=== PATIENT | female | born 1980 | race Caucasian/White ===

== ENCOUNTER 2022-05-28 07:50 | Emergency (ER) | payer OTHER, SELFPAY ==
[2022-05-28 08:04] VITALS: BP 115/71; PULSE 84; RESP 17; TEMP 35.7; O2SAT 100; BMI 20.9
--- NOTE | 2022-05-28 08:06 | ED.PREGNANCY ---
HPI - General Chief complaint: Vaginal Bleeding Stated complaint: miscarriage xstory 7days pain moved into back Time Seen by Provider: 05/28/22 08:06 Source: patient Mode of arrival: Ambulatory Limitations: no limitations History of Present Illness HPI Narrative: This is a 41-year-old female last menstrual period was 04/05/2022 who states she had 5 positive home tests, she started having bleeding with about 2 days of clots which has tapered off to just spotting and occasional pinkish blood over the past week. Patient states she had improved in terms of her cramping in his comfort which lasted about 2 days. She states last night she started feeling nauseated she felt chilled, she denies cough cold or congestion, no chest pain or shortness of breath, she is had some nausea but no vomiting. She had some episodes of diarrhea but not black or bloody. No dysuria, urgency or frequency. No increase in vaginal bleeding she has not appreciate any foul odor or changes in discharge but was concerned as she is continued to have pelvic discomfort and radiating to bilateral flank. Patient denies any recent surgeries, she did have a parathyroidectomy for parathyroid adenoma. No known drug allergies. She takes medication for hypothyroidism. Patient does live on [address]. Related Data Home Medications Medication Instructions Recorded Confirmed levothyroxine 112 mcg tablet 0.112 mg PO QAM ##0 11/02/16 Previous Rx's Medication Instructions Recorded fluconazole 150 mg tablet 150 mg PO QDAY #2 tabs 11/02/16 (Diflucan) Allergies Allergy/AdvReac Type Severity Reaction Status Date / Time No Known Allergies Allergy Uncoded 11/22/17 12:42 Review of Systems Review of Systems ROS Unobtainable: All systems reviewed & are unremarkable except as noted in HPI and below Exam Narrative Exam Narrative: GENERAL: Alert and oriented x three, mild distress. HEENT: Head normocephalic, atraumatic, EOMI, pupils reactive, face symmetric, moist mucous membranes NECK: Supple, full range of motion CARDIOVASCULAR: Regular rate and rhythm without murmurs, rubs or gallops. RESPIRATORY: Breath sounds equal bilaterally, no wheezes rales or rhonchi. ABDOMEN: Soft, mild suprapubic tenderness. Normoactive bowel sounds all 4 quadrants. No guarding or rebound, rigidity, no mass. Nondistended. : No CVA tenderness EXTREMITIES: Normal range of motion, no clubbing or edema. Neurovascularly intact NEUROLOGICAL: Cranial nerves II through XII grossly intact. Moving all extremities SKIN: Warm, dry, no petechiae, no rashes or lesions. Initial Vital Signs Initial Vital Signs: Vital Signs Temperature 96.3 F L 05/28/22 08:04 Pulse Rate 84 05/28/22 08:04 Respiratory Rate 17 05/28/22 08:04 Blood Pressure 115/71 05/28/22 08:04 Pulse Oximetry 100 05/28/22 08:04 Oxygen Delivery Method 05/28/22 08:04 Course Orders Ordered: Discontinued Medications Sodium Chloride (Normal Saline 0.9%) 1,000 mls @ 1,000 mls/hr IV BOLUS ONE Stop: 05/28/22 09:29 Last Infusion: 05/28/22 10:34 Dose: 0 mls/hr Documented By: Admin: 05/28/22 09:03 Dose: 1,000 mls/hr Documented By: DIANA Ketorolac Tromethamine (Ketorolac 30 Mg/Ml Vial) 15 mg IV NOW ONE Stop: 05/28/22 08:31 Last Admin: 05/28/22 09:03 Dose: 15 mg Documented By: DIANA Vital Signs Vital signs: Vital Signs - 8 hr 05/28/22 10:34 Pulse Rate 65 Blood Pressure 108/57 L Pulse Oximetry 100 Oxygen Delivery Method Room Air MDM - OB/Uterine Contractions Lab Data Result diagrams: 05/28/22 08:45 05/28/22 08:45 Labs: Lab Results 05/28/22 05/28/22 05/28/22 Range/Units 08:45 08:45 08:45 WBC 5.1 (4.5-11.0) X10^3/uL RBC 4.20 (4.0-5.2) X10^6/uL Hgb 12.5 (12.0-16.0) g/dL Hct 36.7 (36-46) % MCV 87.4 (80-100) fL MCH 29.8 (26-34) PG MCHC 34.1 (30-36) % RDW 12.2 (11.6-14.8) % Plt Count 173 (150-400) X10^3/uL Neut % (Auto) 70.2 (50-75) % Lymph % (Auto) 15.9 L (25-40) % [place] % (Auto) 11.5 (3-14) % Eos % (Auto) 1.7 L (2-4) % Baso % (Auto) 0.7 (0-2) % Neut # (Auto) 3600 (3765-9235) /uL Lymph # (Auto) 800 L (5351-8222) /uL [place] # (Auto) 600 (0-900) /uL Eos # (Auto) 100 (0-450) /uL Baso # (Auto) 0 (0-100) /uL Sodium 140 (137-145) mmol/L Potassium 3.6 (3.4-5.1) mmol/L Chloride 105 (98-107) mmol/L Carbon Dioxide 26 (22-32) mmol/L BUN 8 (7-17) mg/dL Creatinine 0.57 (0.52-1.04) mg/dL Estimated GFR > 60 (>60) mL/min BUN/Creatinine Ratio 14.0 (6-22) Glucose 100 (70-100) mg/dL Calcium 8.6 (8.4-10.2) mg/dL Total Bilirubin 0.7 (0.2-1.3) mg/dL AST 20 (14-36) IU/L ALT 15 (<35) IU/L Alkaline Phosphatase 47 (38-126) U/L Total Protein 7.3 (6.3-8.2) g/dL Albumin 4.1 (3.5-5.0) g/dL Globulin 3.2 (1.7-4.1) g/dL Albumin/Globulin Ratio 1.3 (1.0-2.8) Lipase (23-300) U/L HCG, Quant < 2.4 mIU/mL 05/28/22 Range/Units 08:45 WBC (4.5-11.0) X10^3/uL RBC (4.0-5.2) X10^6/uL Hgb (12.0-16.0) g/dL Hct (36-46) % MCV (80-100) fL MCH (26-34) PG MCHC (30-36) % RDW (11.6-14.8) % Plt Count (150-400) X10^3/uL Neut % (Auto) (50-75) % Lymph % (Auto) (25-40) % [place] % (Auto) (3-14) % Eos % (Auto) (2-4) % Baso % (Auto) (0-2) % Neut # (Auto) (0394-1091) /uL Lymph # (Auto) (3213-6186) /uL [place] # (Auto) (0-900) /uL Eos # (Auto) (0-450) /uL Baso # (Auto) (0-100) /uL Sodium (137-145) mmol/L Potassium (3.4-5.1) mmol/L Chloride (98-107) mmol/L Carbon Dioxide (22-32) mmol/L BUN (7-17) mg/dL Creatinine (0.52-1.04) mg/dL Estimated GFR (>60) mL/min BUN/Creatinine Ratio (6-22) Glucose (70-100) mg/dL Calcium (8.4-10.2) mg/dL Total Bilirubin (0.2-1.3) mg/dL AST (14-36) IU/L ALT (<35) IU/L Alkaline Phosphatase (38-126) U/L Total Protein (6.3-8.2) g/dL Albumin (3.5-5.0) g/dL Globulin (1.7-4.1) g/dL Albumin/Globulin Ratio (1.0-2.8) Lipase 136 (23-300) U/L HCG, Quant mIU/mL Point of Care Testing Test Results Negative Urine Dip Bedside Urine Glucose Negative Bedside Urine Bilirubin - Negative Bedside Urine Ketone - Negative Urine Specific Transfer 1.010 Bedside Urine Occult Blood - Negative Bedside Urine pH 6 Bedside Urine Protein - Negative Bedside Urine Urobilinogen - Negative Bedside Urine Nitrite - Negative Bedside Urine Leukocytes - Negative Esterase MDM Narrative Medical decision making narrative: This is with multiple home tests who would be 7 weeks 4 days by gestational age. She states that she had cramps in the large amount of clots about a week ago and suspect she miscarried. She had not had any visits or ultrasound. Patient states she started having more cramping and diarrhea last night and generally feeling unwell so she presents this morning. Patient states she has not had any increase in vaginal bleeding but still has very small amount of spotting. Urine is negative, point of care urine is also negative. For labs and pelvic ultrasound to evaluate for retained products of conception. Patient's abdominal exam is overall reassuring making appendicitis, or significant intra-abdominal pathology otherwise significantly less likely. Discharge Plan Departure Patient Disposition: Home Clinical Impression: Abdominal pain Instructions: DI for Miscarriage Activity Restrictions/Additional Instructions: Your labs and imaging today do not show any signs of or retained products and are overall reassuring. Talk with your OBGYN into her appointment on Monday. I hope you continue to feel better. You can continue with Tylenol and/or ibuprofen as needed for pain. Your vaginal bleeding should continue to improve. Please follow-up with your physician for recheck if you are developing new or worsening symptoms, come to the ER for having fevers, increasing abdominal, back or flank pain, persistent vomiting, black or bloody stools or other new or concerning changes. Prescriptions: No Action levothyroxine 112 MCG tablet 0.112 mg PO QAM Qty: 0 fluconazole [Diflucan] 150 MG tablet 150 mg PO QDAY Qty: 2 1RF Referrals: Amanda Caruso ARNP [Primary Care Provider] - Visit Report Forms: Patient Portal/API
--- NOTE | 2022-05-28 08:30 | DI.US.S_ITS ---
PROCEDURE: US PELVIC COMPLETE INDICATIONS: + preg LMP 04/05. now -, miscarriage, retained products? TECHNIQUE: Real-time scanning was performed of the pelvic organs, with image documentation. Additional endovaginal scanning was necessary due to incomplete visualization of the adnexal and endometrial structures by transabdominal scanning. COMPARISON: None. FINDINGS: Uterus: Uterus is retroverted and normal in size at 7.8 x 4.3 x 5.8 cm. The myometrium is homogeneous. The endometrium measures 5-6 mm combined thickness. No irregularity of the endometrial stripe can be seen. No abnormal vascularity can be seen along the endometrial stripe. Ovaries: The right ovary measures 5.4 x 2.4 x 1.6 cm, with a calculated ovarian volume of 10.8 cc. The left ovary measures 7 x 2.3 x 1.9 cm, with a calculated ovarian volume of 8.5 cc. The ovaries have a normal sonographic appearance. Less than 12 follicles can be seen in each ovary. No adnexal masses are seen. Normal appearing arterial waveforms are confirmed to each ovary. Other: No pathologic free abdominal or pelvic fluid. IMPRESSION: No findings of retained products of conception can be seen. Normal appearing endometrial stripe. No significant abnormality is seen. We strive to produce accurate, complete, and clear reports of imaging services. To assist us in improving patient care, this report was composed using standard report templates and voice recognition software. Therefore, it may contain abnormal punctuation, insertions and/or omissions. Occasional wrong-word or sound-alike substitutions may occur. Though we review the report and make efforts to correct it, we do recommend that the report be read carefully in proper context to recognize any text inaccuracies. Dictated by: Alejandro Olivera M.D. on 05/28/2022 at 9:03 Approved by: Alejandro Olivera M.D. on 05/28/2022 at 9:05
[2022-05-28] MEDS: SODIUM CHLORIDE 0.9% 1,000 ML 1000 ML IV (09:03)
[2022-05-28] MEDS: KETOROLAC 30 MG/ML VIAL 15 MG IV (09:03)
[2022-05-28 09:09] LABS: Lipase 136 U/L (23-300)
[2022-05-28 09:11] LABS: Alanine Aminotransferase 15 IU/L (<35); Albumin 4.1 g/dL (3.5-5.0); Albumin Globulin Ratio 1.3 (1.0-2.8); Alkaline Phosphatase 47 U/L (38-126); Aspartate Aminotransferase 20 IU/L (14-36); Bilirubin Total 0.7 mg/dL (0.2-1.3); Blood Urea Nitrogen 8 mg/dL (7-17); Calcium 8.6 mg/dL (8.4-10.2); Carbon Dioxide 26 mmol/L (22-32); Chloride 105 mmol/L (98-107); Estimated Glomerular Filt Rate > 60 mL/min (>60); Globulin 3.2 g/dL (1.7-4.1); Glucose 100 mg/dL (70-100); HEMOLYSIS < 15 (0-50); Potassium 3.6 mmol/L (3.4-5.1); Sodium 140 mmol/L (137-145); Total Protein 7.3 g/dL (6.3-8.2)
[2022-05-28 09:27] LABS: HCG Quantitative /Beta subunit < 2.4 mIU/mL
[2022-05-28 10:00] LABS: Add Manual Diff / Slide Review NO; Basophils Absolute Auto 0 /uL (0-100); Basophils Percent Auto 0.7 % (0-2); Eosinophils Absolute Auto 100 /uL (0-450); Eosinophils Percent Auto 1.7 % (2-4); Hematocrit 36.7 % (36-46); Hemoglobin 12.5 g/dL (12.0-16.0); Lymphocytes Absolute Auto 800 /uL (1100-4500); Lymphocytes Percent Auto 15.9 % (25-40); Mean Corpuscular HGB Conc 34.1 % (30-36); Mean Corpuscular Hemoglobin 29.8 PG (26-34); Mean Corpuscular Volume 87.4 fL (80-100); Monocytes Absolute Auto 600 /uL (0-900); Monocytes Percent Auto 11.5 % (3-14); Neutrophils Absolute Auto 3600 /uL (1500-7000); Neutrophils Percent Auto 70.2 % (50-75); Platelet Count 173 X10^3/uL (150-400); Red Cell Distribution Width 12.2 % (11.6-14.8); White Blood Cell Count 5.1 X10^3/uL (4.5-11.0)
[2022-05-28 10:34] VITALS: BP 108/57; PULSE 65; O2SAT 100
== END 2022-05-28 10:36 | disposition home or self-care (01) ==
PROVIDERS: Emergency Provider Emergency Medicine; Family Provider Nurse Practitioner; PCP Nurse Practitioner
DX: O03.9 Complete or unspecified spontaneous abortion without complication (principal); R10.9 Unspecified abdominal pain
CPT/HCPCS: 36415; 76830; 76856; 80053; 81003; 81025; 83690; 84702; 85025; 93976; 96361; 96374; 99284; J1885

== ENCOUNTER → 2025-01-14 10:06 | Outpatient (CLI) | payer OTHER, SELFPAY ==
--- NOTE | 2025-01-14 10:08 | DI.MG.S_ITS ---
MM screening mammo BI: 01/14/2025. BI-RADS: 1 CLINICAL: 44-year old female for bilateral screening mammogram. Tyrer-Cuzick lifetime risk of 19.3%. Current reported family history of breast cancer: mother. PRIOR EXAMS: Reviewed previous images from 2022. MAMMOGRAPHY TECHNIQUE: 2D and 3D (tomosynthesis) digital mammographic views obtained, with additional images as needed for full coverage. Current study was also evaluated with a Computer Aided Detection (CAD) system. DENSITY C. The breasts are heterogeneously dense, which may obscure small masses. MAMMOGRAPHY FINDINGS Bilateral: No suspicious mass, asymmetry, microcalcification, or other abnormality seen. No significant change from comparison. IMPRESSION: * No evidence of malignancy. RECOMMENDATIONS Bilateral * Annual screening mammography. OVERALL ASSESSMENT CATEGORY BI-RADS-1: Negative. The [employer] recommends annual screening mammography beginning at age 40 for women with average risk of breast cancer. ELECTRONICALLY SIGNED: Shikha Seth M.D. on 01/14/2025 at 05:14:19 PM PT Interpreting Station ID: [id number]
== END ==
LOC: MAMMO 10:07
PROVIDERS: Family Provider Nurse Practitioner
DX: Z12.31 Encounter for screening mammogram for malignant neoplasm of breast (principal); Z80.3 Family history of malignant neoplasm of breast; R92.333 Mammographic heterogeneous density, bilateral breasts
CPT/HCPCS: 77063; 77067